=== PATIENT | female | born 1960 | race Caucasian/White ===

== ENCOUNTER → 2019-03-05 | Outpatient (CLI) | payer BC | LOC: MC.RAD 10:41 | DX: Z12.31 Encounter for screening mammogram for malignant neoplasm of breast (principal) ==

== ENCOUNTER → 2021-09-11 | Outpatient (CLI) | payer BC | LOC: MC.RAD 15:39 | DX: Z12.31 Encounter for screening mammogram for malignant neoplasm of breast (principal) ==